=== PATIENT | female | born 1940 | race Caucasian/White ===

== ENCOUNTER 2017-02-16 07:58 | Emergency (ER) | payer MEDICARE, BC ==
--- NOTE | 2017-02-16 08:31 | UC ---
Respiratory Complaint HPI - History of Current Complaint Chief Complaint: UCRespiratory Stated Complaint: UPPER RESP Time Seen by Provider: 02/16/17 08:23 Onset/Duration: Sudden Onset, Lasting Days - 1, Worse Since - today Severity Initially: Mild Severity Currently: Moderate Character: Cough: Nonproductive Aggravating Factors: Deep Breaths, Recumbent Position Associated Signs And Symptoms: Positive: URI, Nasal Congestion, Hoarseness Related History: Seasonal Allergies - Allergies/Home Medications Allergies/Adverse Reactions: Allergies Allergy/AdvReac Type Severity Reaction Status Date / Time Penicillins Allergy Intermediate Hives Verified 02/16/17 08:07 Home Medications: Home Medications Alendronate Sodium [Fosamax-] 70 mg PO WEEKLY 02/16/17 [History Confirmed ] Aspirin [Aspirin 81 MG TAB] 81 mg PO DAILY 02/16/17 [History Confirmed 02/16/17] Calcium Carbonate-Vitamin D [Calcium + D3 600-200 mg-Unit] 1 tab PO DAILY [History Confirmed 02/16/17] Cetirizine* [ZyrTEC 10 MG TAB*] 10 mg PO DAILY 02/16/17 [History Confirmed 02/16] Docusate CAP* [Colace Cap*] 100 mg PO DAILY 02/16/17 [History Confirmed 02/16/17 ] [id number]-Djovahmepfh-Ifc C- [Glucosamine Chondroitin] 1 tab PO 02/16/17 [ History] Lisinopril TAB* [Prinivil TAB 10 MG*] 10 mg PO DAILY 02/16/17 [History Confirmed 02/16/17] Lutein 6 mg PO 02/16/17 [History] Meloxicam [Mobic] 15 mg PO DAILY 02/16/17 [History Confirmed 02/16/17] Multiple Vitamin [Multi Vitamin] 1 tab PO DAILY 02/16/17 [History Confirmed ] Omeprazole CAP* [Prilosec CAP* 20 MG] 20 mg PO DAILY 02/16/17 [History Confirmed 02/16/17] Oxybutynin XL TAB* [Ditropan Xl TAB*] 10 mg PO DAILY 02/16/17 [History Confirmed 02/16/17] Psyllium [Metamucil] 0.52 gm PO 02/16/17 [History] Raloxifene (NF) [Evista(NF)] 60 mg PO DAILY 02/16/17 [History Confirmed 02/16/17 ] PMH/Surg Hx/FS Hx/Imm Hx Cardiovascular History: Hypertension Respiratory History: Bronchitis - Surgical History Surgical History: Yes Surgery Procedure, Year, and Place: TOTAL RIGHT SHOULDER,. BACK SURGERY. TONSILLECTOMY. ROTATOR CUFF SURGERYS. COLOSTOMY AFTER SHOULDER SURGERY FROM OBSTRUCTION - Family History Known Family History: Positive: Cardiac Disease, Hypertension Negative: Diabetes - Social History Occupation: Retired Lives: With Family Alcohol Use: Daily Alcohol Amount: WINE WITH DINNER Substance Use Type: None Smoking Status (MU): Never Smoked Tobacco Review of Systems ENT: Nasal Discharge Respiratory: Cough All Other Systems Reviewed And Are Negative: Yes Physical Exam Triage Information Reviewed: Yes Appearance: No Pain Distress, Well-Nourished, Ill-Appearing - mildly Vital Signs: Initial Vital Signs Temp 98.6 F 02/16/17 08:13 Pulse 82 02/16/17 08:13 Resp 20 02/16/17 08:13 BP 135/68 02/16/17 08:13 Pulse Ox 99 02/16/17 08:13 Vital Signs Reviewed: Yes Eyes: Positive: Conjunctiva Clear ENT: Positive: Pharynx normal, TMs normal Respiratory: Positive: Wheezing - expiratory with coughing Cardiovascular: Positive: Murmur:Sys:Grade _?_/ - 2/6 CECILIA Musculoskeletal Exam: Normal Neurological Exam: Normal Psychological Exam: Normal Skin Exam: Normal UC Diagnostic Evaluation - Laboratory O2 Sat by Pulse Oximetry: 99 Respiratory Course/Dx - Differential Dx/Diagnosis Differential Diagnosis/HQI/PQRI: Asthma, Lower Resp Infection, Sinusitis Provider Diagnoses: Acute URI. Acute bronchospasm Discharge - Discharge Plan Condition: Stable Disposition: HOME Prescriptions: predniSONE TAB* [Deltasone TAB*] 20 mg PO DAILY #18 tab Patient Education Materials: Upper Respiratory Infection (ED), Wheezing (ED), Prednisone (By mouth) Additional Instructions: Wear a mask when visiting your over the next week.
[2017-02-16 08:37] VITALS: BP 135/68
== END 2017-02-16 08:52 | disposition home or self-care (01) ==
LOC: UCCORT 07:58
DX: J06.9 Acute upper respiratory infection, unspecified (principal); J98.01 Acute bronchospasm; I10 Essential (primary) hypertension; Z88.0 Allergy status to penicillin
CPT/HCPCS: 99201; G0463